=== PATIENT | male | born 1955 | race Asian ===

== ENCOUNTER 2019-12-25 05:25 | Inpatient (IN) | payer MEDICAID, OTHER ==
[~2019-12-25] VITALS: Ht 170.2 cm; Wt 50.8 kg
--- NOTE | 2019-12-25 05:35 | NUR ---
PT BIBRA C/O NEPHROSTOMY TUBE PULLED OUT X10 MINUTES SALES AND MARKETING INTERN. PT NOT ABLE TO ANSWER QUESTIONS, VSS, NO ACUTE DISTRESS NOTED. PT CONNECTED TO THE MONITOR AND POX.
--- NOTE | 2019-12-25 06:10 | NUR ---
PATIENT IS TURNED, CLEANED, AND CHANGED INTO A NEW GOWN WITH CLEAN SHEETS.
--- NOTE | 2019-12-25 06:22 | NUR ---
Scout bermudez in ED - 12/25/[address] DESHPANDE ON WEBCAM WITH PATIENT.
--- NOTE | 2019-12-25 06:26 | NUR ---
Scout bermudez in [facility] - 12/25/19 at [address] DESHPANDE'S NUMBER [phone]
--- NOTE | 2019-12-25 06:28 | NUR ---
PT NOT READY//LABS @0629 [address]
--- NOTE | 2019-12-25 06:45 | NUR ---
BLOOD COLLECTED AND SENT TO LAB
--- NOTE | 2019-12-25 06:52 | NUR ---
URINE COLLECTED AND SENT TO LAB
--- NOTE | 2019-12-25 06:53 | NUR ---
COVID SWAB SENT TO LAB
[2019-12-25 07:12] LABS: BASOPHILS % (AUTO) 0.3 % (0.0-2.0); EOSINOPHILS % (AUTO) 1.1 % (0.0-6.0); HEMATOCRIT 37 % (39-51); LYMPHOCYTES # (AUTO) 2.2 /CMM (0.8-4.8); LYMPHOCYTES % (AUTO) 17.8 % (20.0-44.0); MEAN CORPUSCULAR HGB CONC 32 g/dl (31.0-36.0); MEAN CORPUSCULAR VOLUME 90 fL (80-96); MONOCYTES # (AUTO) 0.6 /CMM (0.1-1.30); MONOCYTES % (AUTO) 4.8 % (2.0-12.0); NEUTROPHILS # (AUTO) 9.4 /CMM (1.8-8.9); PLATELET COUNT (AUTO) 384 /CMM (150-450); RED BLOOD CELL COUNT(AUTO) 4.15 MIL/uL (4.5-6.0); WHITE BLOOD COUNT (AUTO) 12.3 K/uL (4.3-11.0)
[2019-12-25 07:19] LABS: CALCIUM, SERUM 10.4 mg/dL (8.5-10.1); CARBON DIOXIDE 26 mmol/L (21-32); CHLORIDE 98 mmol/L (98-107); CREATININE 1.8 mg/dL (0.6-1.3); GLUCOSE 99 mg/dL (74-106); POTASSIUM 4.3 mmol/L (3.5-5.1); SODIUM SERUM 136 mmol/L (136-145); UREA NITROGEN, BLOOD 17 mg/dL (7-18)
[2019-12-25 07:24] LABS: ALANINE AMINOTRANSFERASE 65 U/L (12-78); ALBUMIN 4.1 g/dL (3.4-5.0); ALKALINE PHOSPHATASE 199 U/L (46-116); ASPARTATE AMINOTRANSFERASE 32 U/L (15-37); BILIRUBIN,DIRECT 0.4 mg/dL (0.0-0.2); TOTAL PROTEIN, SERUM 10.7 g/dL (6.4-8.2)
[2019-12-25 07:29] LABS: APPEARANCE,URINE CLOUDY (CLEAR); BILIRUBIN,URINE NEGATIVE (NEGATIVE); BLOOD, URINE LARGE Ery/uL (NEGATIVE); COLOR,URINE YELLOW (YELLOW); KETONES,URINE NEGATIVE (NEGATIVE); LEUKOCYTE ESTERASE ,URINE LARGE (NEGATIVE); NITRITE, URINE POSITIVE (NEGATIVE); PROTEIN,URINE 100 mg/dl (NEGATIVE); UGLUCOSE NEGATIVE (NEGATIVE); UROBILINOGEN,URINE 0.2 EU/dL (0.2)
--- NOTE | 2019-12-25 07:33 | NUR ---
RECEIVED REPORT FROM ALIZA BAKER FOR PRASHANT. PT IS AAOX2, NOT IN RESPIRATORY DISTRESS, V/S STABLE, KEPT RESTED AND COMFORTABLE. WILL CONTINUE TO MONITOR.
--- NOTE | 2019-12-25 07:48 | NUR ---
panel on-call paged
--- NOTE | 2019-12-25 07:56 | NUR ---
NURSING SUP GAVE 102.
[2019-12-25] MEDS ORDERED: PIPERACILLIN /TAZOBACTAM 3.375 G in IV D5W 50 ML IV ONE (08:00)
[2019-12-25] MEDS ORDERED: VANCOMYCIN 1 GM in IV D5W 250 ML IV ONE (08:00)
--- NOTE | 2019-12-25 08:10 | NUR ---
REPORT GIVEN TO RN SOON FOR PRASHANT.
[2019-12-25 08:12] LABS: BACTERIA,URINE 2+ /HPF (None Seen); RBC,URINE TOO NUMEROUS TO COUN /HPF (0-2); WBC,URINE 51-80 /HPF (0-3)
[2019-12-25] MEDS ORDERED: IV NS 0.9% 1,000 ML BAG IV ONE (08:30)
--- NOTE | 2019-12-25 08:36 | NUR ---
received a call from the lab regarding covid 19 result "negative".
[2019-12-25] MEDS ORDERED: FERR325T23 PO (08:48)
[2019-12-25] MEDS ORDERED: ACET325T53 PO (08:48)
[2019-12-25] MEDS ORDERED: LACT-47 PO (08:48)
[2019-12-25] MEDS ORDERED: ONDA4TAB11 PO (08:48)
[2019-12-25] MEDS ORDERED: HALO5AMP3 IJ (08:48)
[2019-12-25] MEDS ORDERED: QUET50TA PO (08:48)
[2019-12-25] MEDS ORDERED: FLUC200T8 PO (08:48)
[2019-12-25] MEDS ORDERED: DOCU-141 PO (08:48)
[2019-12-25] MEDS ORDERED: BISA10SU11 RC (08:48)
--- NOTE | 2019-12-25 08:50 | NUR ---
MED RECON DONE, PT CAME FROM [facility] [address], [place] [address] PHONE [phone] FAX [phone] EMAIL: [email or web address] PCP: PETE REYES [phone]
[2019-12-25 09:10] VITALS: BP 121/71
--- NOTE | 2019-12-25 09:10 | NUR ---
PT CAME TO THE UNIT VIA [facility] ACCOMPANIED BY 2 RNs. APPEARS CALM AND RELAXED NO SIGNS OF DISTRESS. PATIENT IS CHINESE SPEAKING ONLY KNOW A LITTLE BIT OF TURKISH ON RA TOLERATING WELL. HAS SALINE LOCK ON L MIDDLE FINGER AND R FOREARM. HILARIO CATHETER IN PLACE. HAS L LATERAL LOWER BACK WOUND OLD NEPHROSTOMY SITE. VITAL SIGNS TAKEN. SAFETY MEASURES IMPLEMENTED. CALL LIGHT WITHIN REACH. CABIN EQUIPMENT SUPERVISOR RAILS UP X2 WILL CONT TO MONITOR.
--- NOTE | 2019-12-25 09:30 | NUR ---
INFORMED DR RUSSELL BANUELOS OF PT ARRIVAL TO UNIT. INFORMED SISTER RIZWANA ABOUT PATIENTS ARRIVAL TO ROOM 102. [facility]. PATIENT IS BED BOUND AND THE MAIN REASON FOR HOSPITALIZATION WAS BEC HIS NEPHROSTOMY TUBE WAS PULLED OUT. INFORMED DR. BANUELOS.
[2019-12-25 12:00] VITALS: BP 124/71
[2019-12-25] MEDS ORDERED: ONDANSETRON HCL/PF 4 MG/2 ML VIAL IVP PRN (13:30)
[2019-12-25] MEDS ORDERED: Z GUARD REMEDY 2 OZ OINT TP PRN (13:30)
[2019-12-25] MEDS ORDERED: ACETAMINOPHEN 325 MG TABLET PO PRN (13:30)
--- NOTE | 2019-12-25 14:22 | NUR ---
PATIENT BACK FROM CT SCAN IN STABLE CONDITION.
[2019-12-25] MEDS: ENOXAPARIN SODIUM 30 MG/0.3 ML DISP.SYRIN SQ SCH (14:23)
[2019-12-25] MEDS: IV NS 0.9% 1,000 ML IV PRN (14:54)
[2019-12-25 16:00] VITALS: BP 118/74
[2019-12-25] MEDS: ENSURE CLEAR 237 ML LIQUID (MIX BERRY) PO SCH (17:00)
--- NOTE | 2019-12-25 18:44 | NUR ---
RN CLOSING NOTE Patient in bed appears calm and relaxed no signs of distress on room air tolerating well. Patient is AO x2-3 Serbian speaking knows very little [place]. Patient is legally blind. Tele monitor reading SR 80-90s. Cardenas catheter in place draining cloudy yellow urine adequate output 1300ml. Patient is on bed rest with minimal movement. Turned and repositioned q2h. Kept clean and comfortable. Has RFA #20 running NS @ 75ml/hr. Assisted in meals. Offered fluids. All needs met. All due meds given. Safety measures reinforced. Call light within reach. Side rails up x2. Will endorse to shift production supervisor nurse for shiva.
--- NOTE | 2019-12-25 19:15 | NUR ---
RN PM OPENING NOTE REPORT RECIEVED FROM KATY ABRAMS. PT IN BED APPEARS TO BE IN NO APPARENT DISTRESS. PER REPORT PT SI PENDING R/O COVID SO ON ISOLATION. PT IN BED IN NO APPARENT RESP DISTRESS BREATHING EVEN AND UNLABORED. ON RA. PT A/O X2-3 TAMAZIGHT SPEAKING. PT IS LEGALLY BLIND PER REPORT. FC IN PLACE DRAINGING CLOUDY YELLOW URINE PT BEDRIDDEN SKIN PRECAUTIONS IN PLACE TO BE ASSISTED WITH TURNING AND REPOSITIONNG EVERY 2 OURS. RFA INFUSING NS AT 75 ML PER HOUR. GAUGE 20. BED DOWN LICKED CALL LIGHT PLACED WITHIN REACH. PT RETURNED DEMONSTRATION OF ITS USE. WILL CONT TO MONITOR.
[2019-12-25 20:00] VITALS: BP 136/78
[2019-12-25] MEDS ORDERED: FEE PK DOSING 1 MIN EA MC ONE ×2 (20:07→20:11)
[2019-12-25] MEDS ORDERED: QUETIAPINE FUMARATE 25 MG TABLET PO SCH (22:00)
[2019-12-26] VITALS: BP 121/72
[2019-12-26] MEDS: PIPERACILLIN /TAZOBACTAM 3.375 G in IV D5W 50 ML IV SCH ×3 (00:30→13:04)
[2019-12-26] MEDS: IV NS 0.9% 1,000 ML IV PRN (03:14)
[2019-12-26 04:00] VITALS: BP 123/71
--- NOTE | 2019-12-26 05:41 | NUR ---
LAB CALLED AND STATE COVID TEST NEGATIVE.
[2019-12-26 07:07] LABS: BASOPHILS % (AUTO) 0.3 % (0.0-2.0); EOSINOPHILS % (AUTO) 3.8 % (0.0-6.0); HEMATOCRIT 28 % (39-51); HEMOGLOBIN 9.1 g/dL (13.5-17.5); LYMPHOCYTES # (AUTO) 1.2 /CMM (0.8-4.8); LYMPHOCYTES % (AUTO) 13.7 % (20.0-44.0); MEAN CORPUSCULAR HGB CONC 32 g/dl (31.0-36.0); MEAN CORPUSCULAR VOLUME 91 fL (80-96); MONOCYTES # (AUTO) 0.6 /CMM (0.1-1.30); MONOCYTES % (AUTO) 7.1 % (2.0-12.0); NEUTROPHILS # (AUTO) 6.9 /CMM (1.8-8.9); NEUTROPHILS % (AUTO) 75.1 % (43.0-81.0); PLATELET COUNT (AUTO) 296 /CMM (150-450); RED BLOOD CELL COUNT(AUTO) 3.12 MIL/uL (4.5-6.0); WHITE BLOOD COUNT (AUTO) 9.1 K/uL (4.3-11.0)
[2019-12-26 07:34] LABS: ALBUMIN 2.8 g/dL (3.4-5.0); BILIRUBIN,TOTAL 0.8 mg/dL (0.2-1.0); CALCIUM, SERUM 9.1 mg/dL (8.5-10.1); CREATININE 1.7 mg/dL (0.6-1.3); MAGNESIUM 2.3 mg/dL (1.8-2.4); PHOSPHORUS 3.5 mg/dL (2.5-4.9); POTASSIUM 3.8 mmol/L (3.5-5.1); TOTAL PROTEIN, SERUM 7.6 g/dL (6.4-8.2)
--- NOTE | 2019-12-26 07:36 | NUR ---
MS RN RECEIVED PATIENT AWAKE, ORIENTED X2, W/ HILARIO CATHETER, DRAINING YELLOWISH URINE OUTPUT ,NOT IN ANY FORM OF DISTRESS, RESPIRATIONS EVEN AND UNLABORED,NO SOB NOTED, WILL MONITOR PATIENT.
[2019-12-26 08:00] VITALS: BP 129/77
[2019-12-26] MEDS ORDERED: VANCOMYCIN 1 GM in IV D5W 250 ML IV SCH (08:00)
[2019-12-26] MEDS ORDERED: FLUCONAZOLE (100 MG) 100 MG TABLET PO SCH (09:00)
[2019-12-26] MEDS: ENSURE CLEAR 237 ML LIQUID (MIX BERRY) PO SCH ×2 (09:00→13:00)
[2019-12-26] MEDS ORDERED: FERROUS SULFATE (325 MG) 325 MG/TAB TABLET PO SCH (09:00)
--- NOTE | 2019-12-26 09:00 | NUR ---
MS ABRAMS BREAKFAST SERVED, DUE MEDS GIVEN,TOLERATED WELL.
[2019-12-26] MEDS: ENOXAPARIN SODIUM 30 MG/0.3 ML DISP.SYRIN SQ SCH (09:31)
--- NOTE | 2019-12-26 11:00 | NUR ---
MS RBN PATIENT IS COVED NEGATIVE TWICE, RUSSELL VIN ORDERED FOR 3RD SWAB.SENT TO LAB,ALL NEEDS ATTENDED.
--- NOTE | 2019-12-26 12:30 | NUR ---
MS ALIZA BANUELOS ORDERED PATIENT TO BE DISCHARGE TO SNF.
[2019-12-26] MEDS ORDERED: CEPH-570 PO (14:43)
--- NOTE | 2019-12-26 14:50 | NUR ---
MS RN REPORT GIVEN TO Malik ABRAMS TO SNF,ALL NEEDS ATTENDED.
[2019-12-26 16:00] VITALS: BP 108/66
--- NOTE | 2019-12-26 17:50 | NUR ---
MS RN PATIENT WENT TO SNF, REPORT GIVEN TO Malik ABRAMS. ALL NEEDS ATTENDED.
== END 2019-12-26 18:00 | DRG 466 ==
LOC: ER 05:27 → TELE1 08:40
PROVIDERS: ADMIT Nurse Practitioner Acute Care; ATTEND Nurse Practitioner Acute Care
DX: T83.022A Displacement of nephrostomy catheter, initial encounter (principal); N39.0 Urinary tract infection, site not specified; Y83.8 Other surgical procedures as the cause of abnormal reaction of the patient, or of later complication, without mention of misadventure at the time of the procedure; Y92.129 Unspecified place in nursing home as the place of occurrence of the external cause; E87.2 Acidosis; E87.0 Hyperosmolality and hypernatremia; E86.0 Dehydration; N17.9 Acute kidney failure, unspecified; N18.9 Chronic kidney disease, unspecified; H54.8 Legal blindness, as defined in USA; Z87.440 Personal history of urinary (tract) infections; D63.8 Anemia in other chronic diseases classified elsewhere; F20.9 Schizophrenia, unspecified; G93.40 Encephalopathy, unspecified; N13.9 Obstructive and reflux uropathy, unspecified; B96.89 Other specified bacterial agents as the cause of diseases classified elsewhere
CPT/HCPCS: 36415; 71045-TC; 76770-TC; 80048-TC; 80053-TC; 80061-TC; 80076-TC; 81000-TC; 83605-TC; 83735-TC; 84100-TC; 84484-TC; 85025-TC; 85730-TC; 87040-TC; 87081-TC; 87086-TC; 87186-TC; G0378; J1650; J2543; J3370; J7030; J7040; J7060; U0003-CS